=== PATIENT | male | born 1990 | race Caucasian/White ===

== ENCOUNTER 2021-11-18 22:25 | Emergency (ER) | payer OTHER ==
[2021-11-18 22:37] VITALS: RESP 16
[2021-11-18] MEDS ORDERED: clonazePAM 0.5 MG TAB PO STA (22:59)
--- NOTE | 2021-11-18 22:59 | ED ---
Psych HPI - General Chief Complaint: Psychiatric Symptoms Stated Complaint: Mental Health Time Seen by Provider: 11/18/21 22:49 Source: patient, EMS, RN notes reviewed Mode of arrival: EMS - History of Present Illness Initial Comments: This is a pleasant 31-year-old male who presents from a snf in [facility]. Patient arrives via EMS stating that "Kalen told me he is ready for me." Patient states that Kalen to come to the ER. Patient is denying any pain. Patient presents with information from the snf indicating that he has previous psychiatric issues. Patient denying any recent illness. Patient's history is limited given his current psychiatric state. No headache, no fever or chills, no changes in vision or hearing, no sore throat or difficulty with speech, no neck pain, no chest pain or shortness of breath, no abdominal pain, no nausea or vomiting, no changes in urination or bowel movements, no numbness or tingling, no extremity pain, no skin rashes or lesions. Patient states that he has had a tremor for "a long time." Past medical, surgical, social, and family history reviewed. - Related Data Allergies Allergy/AdvReac Type Severity Reaction Status Date / Time No Known Allergies Allergy Verified 11/18/21 23:11 Review of Systems ROS Statement: Those systems with pertinent positive or pertinent negative responses have been documented in the HPI. ROS Other: All systems not noted in ROS Statement are negative. Past Medical History Past Medical History: GERD/Reflux, Thyroid Disorder Additional Past Medical History / Comment(s): palpitations, History of Any Multi-Drug Resistant Organisms: None Reported Past Surgical History: No Surgical Hx Reported Past Psychological History: Schizophrenia Smoking Status: Never smoker Past Alcohol Use History: None Reported Past Drug Use History: None Reported General Exam - General Exam Comments Initial Comments: Generalized tremor noted, flat affect, no evidence of injury. Patient does not appear to be ill or toxic. Cranial nerves II through XII grossly intact. Denies suicidal or homicidal ideation. Limitations: no limitations General appearance: alert, in no apparent distress Head exam: Present: atraumatic, normocephalic, normal inspection Eye exam: Present: normal appearance, PERRL, EOMI. Absent: scleral icterus, conjunctival injection, periorbital swelling ENT exam: Present: normal exam, normal oropharynx, mucous membranes moist, normal external ear exam. Absent: mucous membranes dry Neck exam: Present: normal inspection. Absent: tenderness, meningismus, lymphadenopathy Respiratory exam: Present: normal lung sounds bilaterally. Absent: respiratory distress, wheezes, rales, rhonchi, stridor, chest wall tenderness, accessory muscle use Cardiovascular Exam: Present: regular rate, normal rhythm, normal heart sounds. Absent: systolic murmur, diastolic murmur, rubs, gallop, clicks GI/Abdominal exam: Present: soft, normal bowel sounds. Absent: distended, tenderness, guarding, rebound, rigid Extremities exam: Present: normal inspection, full ROM, normal capillary refill. Absent: tenderness, pedal edema, joint swelling, calf tenderness Back exam: Present: normal inspection Neurological exam: Present: alert, CN II-XII intact Psychiatric exam: Present: flat affect. Absent: normal affect (Flat) Skin exam: Present: warm, dry, intact, normal color. Absent: rash Course Vital Signs 11/18/21 22:27 Temperature 98.0 F Pulse Rate 97 Respiratory 16 Rate Blood Pressure 135/91 O2 Sat by Pulse 96 Oximetry Medical Decision Making - Medical Decision Making Patient presents with exacerbation of psychiatric issues. States that Kalen told to come to the ER because he is ready for him to go to [facility]. Patient was cleared by EPS. Patient being sent back to the snf. Safety plan of starting establish with the snf and the patient's mother. Patient has an outpatient psychiatrist. Patient is not suicidal or homicidal. Patient was told to return to the ER for any signs or symptoms worsen. Told to return immediately if any other problems arise. All questions answered. Treatment plan discussed. Patient in agreement Every effort has been made to ensure accuracy of this dictation. However, due to the limitations of electronic medical records and dictation devices, errors in charting still occur. The case was discussed in detail with ED attending physician. Presentation, findings, treatment plan discussed in detail. [employer] Up Dr. Ashton Disposition Clinical Impression: Acute anxiety Narrative: Chronic schizophrenia type disorder and chronic psychiatric issues Disposition: HOME SELF-CARE Condition: Stable Additional Instructions: Follow-up with your regular physician as directed. Return to the ER immediately if any symptoms worsen, new symptoms arise, or any other problems develop.Have patient follow up with his outpatient psychiatrist as planned. Is patient prescribed a controlled substance at d/c from ED?: No Referrals: None,Stated [REFERRING] - 1-2 days Time of Disposition: 03:47
[2021-11-19 09:22] VITALS: BP 122/70; PULSE 78; TEMP 98
== END 2021-11-19 09:20 | disposition home or self-care (01) ==
LOC: EC 22:25
DX: F99 Mental disorder, not otherwise specified (principal); F41.9 Anxiety disorder, unspecified; K21.9 Gastro-esophageal reflux disease without esophagitis; E07.9 Disorder of thyroid, unspecified
CPT/HCPCS: 82075; 99284